=== PATIENT | male | born 1980 | race Caucasian/White ===

== ENCOUNTER 2022-06-13 13:12 | Outpatient (CLI) | payer SELFPAY ==
--- NOTE | 2022-06-13 13:30 | US_ITS ---
WS: [id number] TESTICULAR ULTRASOUND HISTORY: K40.90 - Unilateral inguinal hernia, without obstruction ... COMPARISON: None available. TECHNIQUE: Real-time and color Doppler imaging or utilized to perform a testicular ultrasound. Right testicle: 4.6 cm x 2.6 cm x 2.1 cm. Normal size and echogenicity. No mass or torsion. Normal color Doppler is present throughout. Systolic and diastolic velocities are both present. No significant hydrocele. Right epididymis: Normal epididymis with no increased vascularity. Left testicle: 3.7 cm x 3.0 cm x 2.6 cm. Testicle is normal size with no mass identified. Significant increased color Doppler throughout the entire testicle. No mass identified. Moderate size hydrocele surrounding the testicle. Left epididymis: Enlarged hypervascular epididymis. LEFT spermatic cord reveals a tortuous and slightly twisted appearance. This is asymmetric to the nor mal appearing RIGHT spermatic cord. US/US scrotum [id number] IMPRESSION: 1. Hyperemic LEFT testicle and epididymis. Mildly twisted spermatic cord. Diff erential includes acute epididymal orchitis. With the slight twisting of the sp ermatic cord intermittent torsion is a possibility considering the patient's hi story. At this time the patient is experiencing pain. There is still blood flow to the testicle. Consider evaluation by urology. 2. Normal RIGHT testicle. Notified SAVITA Vela at 06/13/2022 1:50 PM.
== END 2022-06-13 13:13 | disposition home or self-care (01) ==
PROVIDERS: PCP Nurse Practitioner Family; Visit Provider Registered Nurse
DX: K40.90 Unilateral inguinal hernia, without obstruction or gangrene, not specified as recurrent (principal)
CPT/HCPCS: 76870

== ENCOUNTER 2022-06-13 14:18 | Emergency (ER) | payer SELFPAY ==
[2022-06-13 15:12] LABS: Basophils % 0.2 %; Eosinophils # 0.2 10^3/uL (0.0-0.8); Eosinophils % 1.7 %; Hemoglobin 13.8 g/dL (11.7-16.6); Lymphocytes # 2.4 10^3/uL (0.8-4.8); Lymphocytes % 17.9 %; Mean Corpuscular HGB Conc 34.5 g/dL (30.0-36.0); Mean Corpuscular Hemoglobin 33.1 pg (28.0-34.0); Mean Corpuscular Volume 95.9 fl (80-94); Mean Platelet Volume 7.8 fL (7.4-10.4); Monocytes # 0.7 10^3/uL (0.2-0.9); Monocytes % 4.9 %; Neutrophils # 9.97 10^3/uL (1.8-7.7); Neutrophils % 74.8 %; Nucleated Red Blood Cells % 0 %; Platelet Count 526 10^3/cmm (130-400); Red Blood Count 4.17 10^6/uL (4.1-5.3); Red Cell Distribution Width 12.4 % (12.1-15.1); White Blood Count 13.3 10^3/uL (4.0-10.0)
[2022-06-13 15:35] VITALS: BP 137/90; PULSE 93; RESP 16; TEMP 36.6; O2SAT 99
[2022-06-13 15:38] LABS: Alanine Aminotransferase 19 U/L (0-41); Albumin Level 3.9 g/dL (3.5-5.2); Alkaline Phosphatase 74 U/L (40-130); Anion Gap 13.1 (5-19); Aspartate Amino Transferase 15 U/L (0-40); Blood Urea Nitrogen 11 mg/dL (6-20); Calcium 9.6 mg/dL (8.5-10.5); Carbon Dioxide 28 mmol/L (22-29); Chloride 102 mmol/L (98-107); Globulin 3.7 g/dL (1.3-4.6); Glomerular Filtration Rate 106.5 mL/min (90-130); Glucose 86 mg/dL (65-115); Lipase 11 U/L (13-60); Osmolality Calculated 287 mOsm/kg (285-295); Potassium 4.1 mmol/L (3.5-5.1); Sodium 139 mmol/L (136-145); Total Bilirubin 0.3 mg/dL (0.15-1.2); Total Protein 7.6 g/dL (6.6-8.7)
[2022-06-13 16:34] VITALS: BP 129/64; PULSE 95; RESP 16; O2SAT 97
== END 2022-06-13 19:07 | disposition left against medical advice (07) ==
PROVIDERS: Physician Assistant; Emergency Provider Family Medicine; PCP Nurse Practitioner Family
DX: Z53.21 Procedure and treatment not carried out due to patient leaving prior to being seen by health care provider (principal)
CPT/HCPCS: 36415; 80053; 83690; 85025

== ENCOUNTER → 2022-06-21 11:32 | Outpatient (BNVA) | payer SELFPAY | PROVIDERS: PCP Nurse Practitioner Family; Visit Provider Urology | DX: N50.812 Left testicular pain (principal) | CPT/HCPCS: 81003 ==